=== PATIENT | female | born 1980 | race Caucasian/White ===

== ENCOUNTER → 2021-05-30 | Outpatient (CLI) | payer BC ==
[~2021-05-30] MED LIST: COLACE 100MG C100 MG PO; IBUPROFEN600 MG PO; NORCO 5-325 TA1 EACH PO
[2021-05-31 09:14] LABS: ESTRADIOL 91.3 pg/mL (.); FSH 4.1 mIU/mL (.); LUTEINIZING HORMONE(LH) 7.8 mIU/mL (.)
== END ==
LOC: LAB 10:14
PROVIDERS: Physician Assistant
DX: R23.2 Flushing (principal); R61 Generalized hyperhidrosis
CPT/HCPCS: 36415; 82670; 83001; 83002